=== PATIENT | male | born 1975 | race Caucasian/White ===

== ENCOUNTER 2016-10-28 19:30 | Emergency (ER) | payer BC ==
[~2016-10-28] VITALS: Ht 177.8 cm; Wt 77.1 kg
[2016-10-28 19:39] VITALS: BP_SYST 138
[2016-10-28] MEDS ORDERED: BACITRACIN 1 GM OINT TP ONE (20:00)
[2016-10-28] MEDS ORDERED: LIDOCAINE/EPI 2% 1:100000 20 ML VIAL IJ ONE (20:00)
[2016-10-28 20:25] VITALS: BP_SYST 132
== END 2016-10-28 20:25 | disposition home or self-care (01) ==
LOC: SED 19:30
DX: S81.811A Laceration without foreign body, right lower leg, initial encounter (principal); W04.XXXA Fall while being carried or supported by other persons, initial encounter; Y93.89 Activity, other specified; Y92.89 Other specified places as the place of occurrence of the external cause; Y99.8 Other external cause status
CPT/HCPCS: 99283